=== PATIENT | male | born 1980 | race Caucasian/White ===

== ENCOUNTER 2020-06-05 18:49 | Emergency (ER) | payer OTHER ==
[~2020-06-05 18:49] MED LIST: BACTRIM D.S. TAB1 EA PO; CLINDAMYCIN HC300 MG PO; PERCOCET 5-3251 EACH PO
== END 2020-06-05 20:34 | disposition left against medical advice (07) ==
LOC: ER1 18:49
DX: Z53.21 Procedure and treatment not carried out due to patient leaving prior to being seen by health care provider (principal)